=== PATIENT | female | born 1990 | race Caucasian/White ===

== ENCOUNTER 2021-09-24 03:30 | Inpatient (IN) | payer SELFPAY ==
[2021-09-24 04:10] VITALS: BMI 20.7
[2021-09-24 05:26] LABS: BASO % 0.8 % (0-2.0); EOS % 1.3 % (0-4.5); HEMATOCRIT 23.9 % (32.4-45.2); LYMPH % 52.3 % (8-40); MCH 15.4 pg (25.7-33.7); MCHC 27.8 g/dl (32.0-36.0); MEAN CELL VOLUME 55.3 fl (80-96); MONO % 8.3 % (3.8-10.2); NEUT % 37.3 % (42.8-82.8); PLATELET COUNT 228 10^3/uL (134-434); RBC 4.32 M/mm3 (3.60-5.2); RDW 20.2 % (11.6-15.6); WHITE BLOOD COUNT 5.2 K/mm3 (4.0-10.0)
[2021-09-24 05:28] LABS: HEMOGLOBIN 6.6 GM/dL (10.7-15.3)
[2021-09-24 05:43] LABS: CHLORIDE 112 mmol/L (98-107); SODIUM 143 mmol/L (136-145)
[2021-09-24 05:45] LABS: CALCIUM 9.1 mg/dL (8.5-10.1)
[2021-09-24 05:46] LABS: ANION GAP 6 MMOL/L (8-16); CO2 26 mmol/L (21-32); GLUCOSE,RANDOM 102 mg/dL (74-106); LIPASE 90 U/L (73-393)
[2021-09-24 05:48] LABS: SGPT/ALT 12 U/L (13-61)
[2021-09-24 05:49] LABS: CREATININE 0.7 mg/dL (0.55-1.3); SGOT/AST 7 U/L (15-37)
[2021-09-24 05:50] LABS: BILIRUBIN,TOTAL 0.2 mg/dL (0.2-1); TOT PROT 7.1 g/dl (6.4-8.2)
[2021-09-24 05:52] LABS: ALK PHOS 56 U/L (45-117)
[2021-09-24 06:00] LABS: ANISOCYTOSIS 3+; MACROCYTOSIS 0; OVALOCYTE 1+; PLATELET ESTIMATE NORMAL; ROULEAU 1+
[2021-09-24 13:40] LABS: INR 1.11 (0.83-1.09); PROTHROMBIN TIME (PATIENT) 12.8 SEC (9.7-13.0)
[2021-09-24 18:57] LABS: BASO % 0.4 % (0-2.0); EOS % 1.5 % (0-4.5); HEMATOCRIT 30.3 % (32.4-45.2); HEMOGLOBIN 9.1 GM/dL (10.7-15.3); LYMPH % 48.5 % (8-40); MCHC 29.9 g/dl (32.0-36.0); MEAN CELL VOLUME 62.2 fl (80-96); MEAN PLT VOLUME 8.1 fl (7.5-11.1); MONO % 8.6 % (3.8-10.2); PLATELET COUNT 189 10^3/uL (134-434); RBC 4.88 M/mm3 (3.60-5.2); RDW 28.7 % (11.6-15.6); WHITE BLOOD COUNT 4.4 K/mm3 (4.0-10.0)
[2021-09-24 19:05] LABS: MCH 18.6 pg (25.7-33.7)
[2021-09-25 09:38] VITALS: BP 125/57; PULSE 91; TEMP 98.8
[2021-09-25] MEDS ORDERED: FERROUS SO4 325 MG TABLET (FP) PO SCH (10:00)
== END 2021-09-25 13:38 | disposition left against medical advice (07) | DRG 663 ==
LOC: JER 03:30 → JERBED 12:00 → J6S 16:16
PROVIDERS: ADMIT Internal Medicine; ATTEND Internal Medicine
PROC: 30233N1 Transfusion of Nonautologous Red Blood Cells into Peripheral Vein, Percutaneous Approach (ICD-10-PCS; principal; 2021-09-24)
DX: D64.9 Anemia, unspecified (principal); N93.9 Abnormal uterine and vaginal bleeding, unspecified
CPT/HCPCS: 36415; 36430; 74177-TC; 76705-TC; 80053; 82272; 82728; 83540; 83550; 83690; 84484; 84703; 85025; 85045; 85610; 86850; 86900; 86901; 86922; 93005; 93010; 99285-25; C9803; P9058; U0003; U0005